=== PATIENT | male | born 1975 | race Caucasian/White ===

== ENCOUNTER 2016-08-13 13:45 | Outpatient (CLI) | payer OTHER ==
[2016-08-13 14:00] VITALS: BP 134/81
[2016-08-13 14:12] LABS: HEMOGLOBIN 14.8 g/dL (14.1-18.0); LYMPH # 1.7 K/mm3 (0.7-4.5); LYMPH % 23.4 % (10-50)
[2016-08-13 14:24] LABS: BUN 13 mg/dL (7-18); GFR (ESTIMATED) 93 ML/MIN (>60)
[2016-08-13 14:30] VITALS: BP 129/84
[2016-08-13 15:00] VITALS: BP 130/82
== END 2016-08-13 15:05 | disposition home or self-care (01) ==
LOC: COP 13:45
PROVIDERS: Internal Medicine Adolescent Medicine
DX: K52.9 Noninfective gastroenteritis and colitis, unspecified (principal); E86.0 Dehydration